=== PATIENT | female | born 1955 | race Caucasian/White ===

== ENCOUNTER → 2019-09-23 | Outpatient (CLI) | payer OTHER ==
[~2019-09-23] MED LIST: AGM875T PO; BENZ100C18 PO; HYDR1TAB PO; VITAMIN B12; VITAMIN C
--- NOTE | 2019-09-23 11:03 | Diagnostic Imaging Report ---
EXAMINATION: Lumbar spine at 9:29 a.m. INDICATION: Back pain. AP, lateral, and spot lateral views were obtained. There are no prior studies available for comparison. FINDINGS: The spot lateral view shows moderate narrowing of the disc space at L5-S1. The other intervertebral spaces are well maintained. There is no fracture or acute bony abnormality evident. There is no sign of a paraspinal mass. There is mild symmetrical sclerosis of the sacroiliac joints. IMPRESSION: 1. There is no evidence for an acute bony abnormality. 2. There is degenerative disc disease at L5-S1. If there is clinical concern regarding spinal stenosis or nerve root encroachment, then MRI would be recommended for further study. Dictated by: Dictated on workstation # [id number]
== END ==
LOC: RAD 09:08
PROVIDERS: ATTEND Family Medicine
DX: Z02.71 Encounter for disability determination (principal)
CPT/HCPCS: 72100